=== PATIENT | female | born 1995 | race Caucasian/White ===

== ENCOUNTER → 2020-06-09 | Outpatient (CLI) | payer MEDICAID, SELFPAY ==
[2017-01-22 09:03] VITALS: BMI 43.2
[2020-06-13 16:08] LABS: Chlamydia By Nucleic Acid AMP Positive (Negative)
[2020-06-14 04:49] LABS: Gonococcus By Nucleic Acid AMP Negative (Negative)
== END | disposition home or self-care (01) ==
LOC: LABSPEC 14:50
PROVIDERS: PCP Family Medicine; Visit Provider Obstetrics & Gynecology
DX: Z12.4 Encounter for screening for malignant neoplasm of cervix (principal); Z11.3 Encounter for screening for infections with a predominantly sexual mode of transmission
CPT/HCPCS: 87491; 87591; 88175; G0145

== ENCOUNTER → 2020-06-23 13:30 | Outpatient (CLI) | payer MEDICAID, SELFPAY ==
[2020-06-23 16:13] LABS: Color, Urine Yellow (Yellow); Glucose, Dipstick Normal (Normal); Ketone-Dipstick Negative (Negative); Leukocyte Esterase-Dipstick 500 /ul (Negative); Nitrite-Dipstick Negative (Negative); Occult Blood-Urine Negative /ul (Negative); Protein-Dipstick Negative (Negative); Specific Gravity, Urine 1.005 (1.002-1.030); Urine Bilirubin Dipstick Negative (Negative); Urine Clarity Sl. Cloudy (Clear); Urine Urobilinogen Normal (Normal)
[2020-06-23 16:16] LABS: Absolute Lymphocyte Count 1.77 X10^3/uL (0.83-4.51); Absolute Neutrophil Count 7.3 X10^3/uL (2.0-7.7); Basophil# 0.02 X10^3/uL; Basophil% 0.2 % (0-1); Eosinophil# 0.03 X10^3/uL; Eosinophils% 0.3 % (0-5); Hematocrit 38.7 % (37-47); Hemoglobin 12.7 g/dL (12.0-15.0); Lymphocyte # 1.77 X10^3/ul (4.0); Lymphocyte % 18.4 % (19-41); Mean Corp Hgb Conc 32.8 g/dL (32-36); Mean Corpuscular Hgb 30.2 pg (27.0-32.0); Mean Corpuscular Volume 91.9 fL (81-99); Mean Platelet Vol. 9.3 fl (6.2-12.0); Monocyte# 0.48 X10^3/uL; NRBC Flagged by Analyzer 0 % (0-5); Neutrophil % 75.7 % (47-70); Platelet Count 319 K/mm3 (150-450); RBC Distribution Width CV 12.4 % (11.6-14.6); RBC Distribution Width SD 41.8 fl (35.1-43.9); Red Blood Count 4.21 M/mm3 (4.2-5.4); White Blood Count 9.6 K/mm3 (4.4-11.0)
[2020-06-23 17:06] LABS: Thyroid Stim Hormone (TSH) 3.64 uIU/mL (0.358-3.74)
[2020-06-24 09:20] LABS: HIV - WCH Non-Reactive (Nonreactive); Hepatitis B Surface Antigen Non-Reactive (Nonreactive); Hepatitis C Antibody Non-Reactive (Nonreactive); Rubella IgG 13.8 IU/mL
[2020-06-30 04:30] LABS: Prenatal RPR NONREACTIVE (NONREACTIVE)
== END ==
PROVIDERS: PCP Family Medicine; Visit Provider Obstetrics & Gynecology
DX: Z34.81 Encounter for supervision of other normal pregnancy, first trimester (principal)
CPT/HCPCS: 36415; 81002; 84443; 85025; 86703; 86762; 86803; 87340

== ENCOUNTER → 2020-09-22 13:03 | Outpatient (CLI) | payer MEDICAID, SELFPAY ==
[2017-01-22 09:03] VITALS: BMI 43.2
[2020-09-23 20:08] LABS: Chlamydia By Nucleic Acid AMP Negative (Negative)
[2020-09-24 11:18] LABS: Gonococcus By Nucleic Acid AMP Negative (Negative)
== END ==
PROVIDERS: PCP Family Medicine; Visit Provider Obstetrics & Gynecology
DX: Z34.82 Encounter for supervision of other normal pregnancy, second trimester (principal); Z11.3 Encounter for screening for infections with a predominantly sexual mode of transmission
CPT/HCPCS: 87491; 87591

== ENCOUNTER → 2020-10-20 13:03 | Outpatient (CLI) | payer MEDICAID, SELFPAY ==
[2020-10-20 14:29] LABS: Hematocrit 36.9 % (37-47); Mean Corp Hgb Conc 32.5 g/dL (32-36); Mean Corpuscular Hgb 31.1 pg (27.0-32.0); Mean Corpuscular Volume 95.6 fL (81-99); Mean Platelet Vol. 9.5 fl (6.2-12.0); Platelet Count 265 K/mm3 (150-450); RBC Distribution Width CV 12.7 % (11.6-14.6); RBC Distribution Width SD 43.8 fl (35.1-43.9); Red Blood Count 3.86 M/mm3 (4.2-5.4); White Blood Count 9.6 K/mm3 (4.4-11.0)
[2020-10-20 14:35] LABS: Glucose Challenge Gest 1H 50g 79 mg/dL (70-140)
== END ==
PROVIDERS: PCP Family Medicine; Visit Provider Obstetrics & Gynecology
DX: Z34.82 Encounter for supervision of other normal pregnancy, second trimester (principal)
CPT/HCPCS: 36415; 82950; 85027

== ENCOUNTER → 2021-01-12 13:33 | Outpatient (CLI) | payer MEDICAID, SELFPAY ==
[2017-01-22 09:03] VITALS: BMI 43.2
== END ==
PROVIDERS: PCP Nurse Practitioner Family; Visit Provider Obstetrics & Gynecology
DX: Z36.85 Encounter for antenatal screening for Streptococcus B (principal)
CPT/HCPCS: 87081

== ENCOUNTER → 2021-01-27 14:54 | Outpatient (CLI) | payer MEDICAID, SELFPAY | PROVIDERS: PCP Nurse Practitioner Family; Referring Provider Obstetrics & Gynecology; Visit Provider Obstetrics & Gynecology | DX: Z20.822 Contact with and (suspected) exposure to COVID-19 (principal) | CPT/HCPCS: 87635; C9803; U0002 ==

== ENCOUNTER 2021-01-31 04:50 | Inpatient (IN) | payer MEDICAID, SELFPAY ==
[2021-01-31] VITALS (18 sets, daily range): BP systolic 89–120; BP diastolic 46–86; PULSE 66–111; RESP 16–19; TEMP 35.8–37; O2SAT 95–100; BMI 42.0
[2021-01-31] MEDS: Lactated Ringers 1,000 ML 999 ML IV (05:10)
[2021-01-31 05:22] LABS: Absolute Lymphocyte Count 2.16 X10^3/uL (0.83-4.51); Absolute Neutrophil Count 5.6 X10^3/uL (2.0-7.7); Basophil# 0.02 X10^3/uL; Basophil% 0.2 % (0-1); Eosinophil# 0.03 X10^3/uL; Eosinophils% 0.4 % (0-5); Hematocrit 37.1 % (37-47); Hemoglobin 12.2 g/dL (12.0-15.0); Lymphocyte # 2.16 X10^3/ul (0.83-4.51); Mean Corp Hgb Conc 32.9 g/dL (32-36); Mean Corpuscular Hgb 31.5 pg (27.0-32.0); Mean Corpuscular Volume 95.9 fL (81-99); Mean Platelet Vol. 9.3 fl (6.2-12.0); Monocyte# 0.46 X10^3/uL; Monocyte% 5.5 % (0-10); NRBC Flagged by Analyzer 0 % (0-5); Neutrophil # 5.62 X10^3/uL (2.7-7.7); Neutrophil % 67.5 % (47-70); Platelet Count 254 K/mm3 (150-450); RBC Distribution Width SD 45.9 fl (35.1-43.9); Red Blood Count 3.87 M/mm3 (4.2-5.4); White Blood Count 8.3 K/mm3 (4.4-11.0)
[2021-01-31] MEDS: Acetaminophen 500 MG Tablet 1000 MG PO ×3 (05:39→18:50)
[2021-01-31] MEDS: Lactated Ringers 1,000 ML 150 ML IV (06:48)
[2021-01-31] MEDS: Sodium Citrate/Citric Acid 30 ML UDC PO (06:48)
--- NOTE | 2021-01-31 07:12 | HP.PCM_ITS ---
History and Physical Date of Admission: 01/31/21 Complaint: Repeat section bilateral tubal ligation History of present illness: 25-year-old G2, P1 living to 39 weeks and 4 days with AMRIT: 02/04/2020 1 x 7-week ultrasound arrives for repeat section bilateral tubal ligation. Denies headache, visual changes, chest pain, shortness of breath, nausea vomiting, right upper quadrant pain. Patient states good movement Obstetric history: G1: 38-week primary section twins G2: Current Past medical history: None Medications: vitamin Past surgical history: ET tubes, section, chest wall cyst removal Allergies: No known drug allergies Family history: Denies history DVT or PE Review of systems: Besides above pertinent positives a full review of systems performed found to be negative Physical exam: Vital Signs Temp Pulse Resp BP Pulse Ox 01/31/21 05:11 97.1 F L 111 H 16 120/86 H 97 General: Normal-appearing no acute distress HEENT: Normocytic atraumatic Cardiac/respiratory: Nonlabored breathing, no use of accessory muscles Abdomen: Soft, nontender, gravid Extremities: No normal peripheral edema normal pulses Psych: Normal affect normal demeanor nonpressured speech Mom's Labs & Results 01/31/21 01/31/21 05:10 05:10 WBC 8.3 RBC 3.87 L Hgb 12.2 Hct 37.1 MCV 95.9 MCH 31.5 MCHC 32.9 RDW Std Deviation 45.9 H RDW Coeff of Silverio 13.0 Plt Count 254 MPV 9.3 Immature Gran % (Auto) 0.400 Neut % (Auto) 67.5 Lymph % (Auto) 26.0 Assumption % (Auto) 5.5 Eos % (Auto) 0.4 Baso % (Auto) 0.2 Absolute Neuts (auto) 5.6 Absolute Lymphs (auto) 2.16 Nucleated RBC % 0 Blood Type A POSITIVE Antibody Screen NEGATIVE Labs Blood Type: A RH: POSITIVE RPR/VDRL/Syphilis Nonreactive Rubella status Immune HbSAg Negative Date Done: 06/23/20 Chlamydia Negative Gonorrhea Negative HIV/AIDS Non-Reactive Group B Strep: Negative Assessment plan: 25-year-old G2, P1 living 2 at 39 weeks and 4 days for repeat section bilateral tubal ligation -[facility] -CEFM -GBS negative -2 g Ancef -Routine orders -Anesthesia to see
[2021-01-31] MEDS: Cefazolin 2 GM in 0.9% Normal Saline 100 ML IV (07:24)
--- NOTE | 2021-01-31 08:00 | FALS_PTH ---
PATIENT: MILADIS PHELPS LOC: [facility] U#:[id number] AGE/SX: 25/F ROOM: [facility] RE01/31/[address]: Dr. Kwan Aragon MD : 1995 BED: 1 DIS: 02/01/2021 SPEC #: [id number] RECD: 01/31/21 09:16 STATUS: ARLEY REVon #: [id number] SANGITA: 01/31/21 08:[address]: Kwan Aragon DEPT: SURGICAL PATHOLOGY RECD BY: Maria L Moreland ENTERED: 01/31/21 12:30 SP TYPE: FALL TUBES OTHR DR: Josie Agosto, BELT KNIFE FEEDER-C Tissues: Fallopian tube Procedures: Surgery Specimen Level II HEADER OPERATION: Tubal ligation PRE-OP DIAGNOSIS: Sterilization TISSUE SUBMITTED: Fallopian tubes, suture in right tube MICROSCOPIC DIAGNOSIS Right and left fallopian tubes, bilateral salpingectomies: Two complete segments of fallopian tubes with no pathologic change. AM:zena 02/01/2021 MICROSCOPIC DESCRIPTION Slides are reviewed. GROSS DESCRIPTION Received in fixative is one container labeled with the patient's name and designated bilateral fallopian tubes, stitch on right. The specimen consists of two fallopian tubes with an average length of 8 cm and has an average diameter of 0.7 cm. Both fallopian tubes have normal fimbriated ends. No mass lesions are identified. Patient Advocate sections are submitted in two cassettes as follows: 1 - right fallopian tube, 2 - left fallopian tube. / AM:zena 01/31/2021 TC:4 CPT: 23197 x2
--- NOTE | 2021-01-31 08:28 | OP.PCM_ITS ---
Report of Operation Date of Procedure: 01/31/21 Pre-Operative Diagnosis: Term, history of section, desires permanent sterilization Post-Operative Diagnosis: Term, history of section, desires permanent sterilization Surgery/Procedure Performed:: Repeat section Via Pfannenstiel incision, bilateral salpingectomy Description of Surgical Findings:: Surgeon: Kwan Aragon MD Anesthesia: Spinal EBL: 600 cc Urine output: 400 cc IV fluids: 1300 cc Complications: None Specimen: None Findings: Male in vertex position Apgars 8/9. Normal uterus, tubes, and ovaries. Consent: Patient with history of section desires permanent sterilization in need of repeat section Via Pfannenstiel incision and bilateral tubal ligation. Patient understands the risk of the procedure include but are not limited to visceral or vascular injury, prolonged hospitalization, blood loss and need for transfusion, reoperation. Patient states understanding wished proceed. All questions were answered consent was signed. Procedure: Patient appropriate to the OR where spinal anesthesia found to be adequate. 2 g of Ancef were given for infection prophylaxis. Patient was pared and draped in a dorsal supine position with a leftward tilt. Pfannenstiel incision made skin with a scalpel. Incision was carried down to the fascia with a scalpel. The fascia was excised and extended laterally. Inferior aspect of the fascia was grasped with a clamp and the underlying rectus and pyramidalis muscle were dissected off sharply with Jenkins scissors. In a similar fashion the superior aspect of the fascia was grasped with a clamp and the underlying rectus muscle dissected off sharply. Rectus muscles dissected the midline down to the level of pubic symphysis. Preperitoneal fatty tissue was noted the peritoneum was en tered bluntly. Peritoneum was extended superiorly and inferiorly with good visualization of the bladder. Bladder blade was inserted and vesicouterine peritoneum was identified. Low transverse hysterotomy was made. Hand was placed into the incision. Gentle fundal pressure was applied once the head was brought in incision and bladder blade was removed. Head and shoulders were delivered with ease. Cord was cut and clamped. Baby handed off to nursing. Placenta was delivered via cord traction and fundal massage. Uterus was exteriorized and wiped out with dry laparotomy sponges in order to remove remaining placental membranes. IV oxytocin was initiated in order to facilitate uterine contractions. Uterus was closed in a continuous running fashion. Second layer was performed. Right fallopian tube was identified to the fimbriae. Using a LigaSure device the mesosalpinx was cut and cauterized. Sent to pathology. The left lobe tube was identified to the fimbriae and the mesosalpinx was cut and cauterized fallopian tube was sent to pathology. Hysterotomy incision was reexamined good hemostasis was noted. Uterus was placed back in the abdominal cavity and incision was reinspected and good hemostasis was noted. Muscle layer was closed with horizontal mattress sutures. Fascia was closed in a continuous running fashion. Skin was closed in a subcuticular fashion. All counts correct x2. Patient tolerated procedure well was brought to recovery in stable condition. pig furnace operator: Malia Birmingham
--- NOTE | 2021-01-31 08:33 | DCINST_ITS ---
Discharge Diet: No Restrictions Discharge Activity: Return to Normal Activity, May Drive, May Shower, - - no tub baths for 2 weeks May resume sexual activity in: 4-6 weeks Lifting Restrictions: no lifting over 25lb for 3 weeks Call your doctor if your incision/area has: Continuous Slow Oozing, Foul Smelling Discharge Call your doctor if you observe: Fever of 101 or Higher, Shortness of breath, Chest pain Additional Instructions: If you experience any of the following, contact your healthcare provider. * Bleeding that soaks a pad every hour for 2 hours * Fever 100.4 or higher * Unrelieved incision or abdominal pain * Swelling, redness, discharge or bleeding from your incision or episiotomy site * Your incision begins to separate * Problems urinating (including inability to urinate or burning while urinating). * Visual changes * Severe headache * Flu-like symptoms * Pain or redness in one of both of your breasts * Pain, warmth, tenderness or swelling in your legs, especially the calf area * Frequent nausea and vomiting * Symptoms of depression or anxiety If you experience any of the following, call 911 or go to the nearest Emergency Room. * Chest pain * Problems breathing * Seizure activity * Partial or complete paralysis of a body part, slurred speech, weakness or drooping of the face, or a sudden inability to walk or hold your balance Allergies/Adverse Reactions: Allergies No Known Allergies Allergy (Verified 12/20/16 14:03) Medications to take at Discharge Vit Calc,Iron,Folic [ Vitamins] 1 each PO DAILY 12/17/16 Famotidine [Pepcid] 20 mg PO DAILY 01/31/21 Oxycodone [Oxyir] 5 mg PO Q6H PRN PRN 4 Days #16 tab 01/31/21 The following prescriptions were given: Oxycodone [Oxyir] 5 mg PO Q6H PRN PRN 4 Days #16 tab PRN Reason: Pain Score 6-10 Transmission Status[id number] Follow-Up: Call to make an appointment with your doctor for an incision check in 1-2 weeks. You will also need a 6 week post- follow up appointment. Test results from this visit will be discussed in further detail at your follow- up appointment, if applicable. Please Follow Up With: Kwan Aragon MD When: 2 weeks post op, 6 weeks Primary Care Physician: Josie Agosto CAN CLEANER, CAN CLEANER-C [Primary Care Provider] -
[2021-01-31] MEDS: Oxytocin 30 units/NS 500 ml 30 UNITS/500 ML IV.SOLN 167 UNITS IV (08:50)
[2021-01-31] MEDS: Ketorolac 30 MG/ML Syringe IV ×3 (08:59→21:00)
[2021-01-31 09:19] LABS: Pathology Specimen OB SEE PATHOLOGY REPORT
[2021-01-31] MEDS: 0.9% Saline Lock 10 ML Syringe IV ×2 (11:09→21:01)
[2021-01-31] MEDS: Ondansetron 4 MG/2 ML Vial IV (11:09)
[2021-01-31] MEDS: Lactated Ringers 1,000 ML 100 ML IV (11:56)
[2021-01-31] MEDS: proCHLORPERazine 10 MG/2 ML Vial IV (17:52)
[2021-01-31] MEDS: Enoxaparin 40 MG/0.4 ML Syringe SC (21:01)
[2021-02-01] MEDS: Acetaminophen 500 MG Tablet 1000 MG PO ×3 (00:52→12:25)
[2021-02-01] MEDS: Ibuprofen 600 MG Tablet PO ×3 (02:50→15:26)
[2021-02-01 03:51] VITALS: BP 105/61; PULSE 72; RESP 18; TEMP 36.1
[2021-02-01 05:16] LABS: Hematocrit 30.8 % (37-47); Mean Corp Hgb Conc 32.5 g/dL (32-36); Mean Corpuscular Hgb 31.5 pg (27.0-32.0); Mean Corpuscular Volume 97.2 fL (81-99); Mean Platelet Vol. 9.1 fl (6.2-12.0); Platelet Count 185 K/mm3 (150-450); RBC Distribution Width CV 13.3 % (11.6-14.6); RBC Distribution Width SD 46.6 fl (35.1-43.9); Red Blood Count 3.17 M/mm3 (4.2-5.4); White Blood Count 10.3 K/mm3 (4.4-11.0)
--- NOTE | 2021-02-01 06:34 | NURSING ---
Dr. Aragon notified that patient's IV was removed due to tenderness and swelling and that patient did not get last dose of Toradol.
--- NOTE | 2021-02-01 06:46 | PN.OBGYN_ITS ---
Subjective: No overnight complaints. Pain well controlled. - Physical Exam Vitals/I&O's: Vital Signs Temp Pulse Resp BP Pulse Ox 97 F L 72 18 105/61 98 02/01/21 03:51 02/01/21 03:51 02/01/21 03:51 02/01/21 03:51 01/31/21 23:26 Oxygen Delivery Method Room Air Weight: 253 lb Body Mass Index (BMI) 42.0 Intake and Output for Last 24 Hours 01/30/21 01/31/21 02/01/21 23:59 23:59 23:59 Intake Total 3673.33 / 3673.33 Output Total 2049 / 2049 300 / 300 Balance 1623.33 / 1623.33 -300 / -300 General: Alert, Oriented x3, Cooperative, No apparent distress HEENT: Atraumatic, Normocephalic Oral: Moist Mucosa Neck: Supple Abdomen: Soft, Non Tender Extremities: No clubbing, No cyanosis Neurological: Neuro grossly intact Psych/Mental Status: Normal Affect, Appropriate, Alert and oriented to time, place, person, mood and affect Laboratory Results 02/01/21 05:10: WBC 10.3, RBC 3.17 L, Hgb 10.0 L, Hct 30.8 L, MCV 97.2, MCH 31.5, MCHC 32.5, RDW Std Deviation 46.6 H, RDW Coeff of Silverio 13.3, Plt Count 185, MPV 9.1 Current Medications Acetaminophen (Acetaminophen 500 Mg Tablet) 1,000 mg PO Q6 [facility] Last Admin: 02/01/21 06:34 Dose: 1,000 mg Documented by: Bisacodyl (Bisacodyl 10 Mg Suppository) 10 mg RC UD PRN PRN Reason: If no BM Diphenhydramine HCl (Diphenhydramine 25 Mg Capsule) 25 mg PO Q6H PRN PRN PRN Reason: ITCHING Stop: 02/01/21 08:57 Enoxaparin Sodium (Enoxaparin 40 Mg/0.4 Ml Syringe) 40 mg SC DAILY [facility] Last Admin: 01/31/21 21:01 Dose: 40 mg Documented by: Hydrocortisone (Hydrocortisone 2.5% Crm) 1 applic TOPICAL TID PRN PRN; Protocol PRN Reason: Discomfort Ibuprofen (Ibuprofen 600 Mg Tablet) 600 mg PO Q6H [facility] Last Admin: 02/01/21 02:50 Dose: 600 mg Documented by: Nalbuphine HCl (Nalbuphine 10 Mg/Ml Ampul) 5 mg IV Q3H PRN PRN PRN Reason: ITCHING Stop: 02/01/21 08:57 Naloxone HCl (Naloxone 0.4 Mg/Ml Syringe) 0.02 mg IV Q1M PRN PRN Reason: RR <10 and pt unresponsive Ondansetron HCl (Ondansetron 4 Mg/2 Ml Vial) 4 mg IV Q4H PRN PRN PRN Reason: Nausea Last Admin: 01/31/21 11:09 Dose: 4 mg Documented by: Oxycodone HCl (Oxycodone 5 Mg Tablet) 5 - 10 mg PO Q4H PRN PRN PRN Reason: Pain Score 4-10 Prochlorperazine Edisylate (Prochlorperazine 10 Mg/2 Ml Vial) 10 mg IV Q6H PRN PRN PRN Reason: NAUSEA Last Admin: 01/31/21 17:52 Dose: 10 mg Documented by: Senna/Docusate Sodium (Senna/Docusate Sodium 1 Tablet) 0 tablet PO DAILY [facility] Last Admin: 01/31/21 09:29 Dose: Not Given Documented by: Simethicone (Simethicone 80 Mg Tablet) 80 mg PO [facility] PRN PRN Reason: Indigestion/stomach pain Sodium Chloride (0.9% Saline Lock 10 Ml Syringe) 5 - 15 ml IV UD PRN PRN Reason: SALINE FLUSH Last Admin: 01/31/21 21:01 Dose: 10 ml Documented by: Medical Necessity - Tobacco Use Smoking Status: Never smoker Assessment/Plan Postop day 1 status post repeat section and bilateral salpingectomy. Pain well controlled. Bottlefeeding. Okay to discharge home today
[2021-02-01 08:15] VITALS: BP 106/54; PULSE 86; RESP 16; TEMP 36.1; O2SAT 96
[2021-02-01] MEDS: Senna/Docusate Sodium 1 Tablet PO (09:32)
[2021-02-01] MEDS: Enoxaparin 40 MG/0.4 ML Syringe SC (09:32)
[2021-02-01 14:17] VITALS: BP 102/63; PULSE 105; RESP 16; TEMP 36.4; O2SAT 98
== END 2021-02-01 16:10 | disposition home or self-care (01) | DRG 539 ==
PROVIDERS: Admitting Provider Obstetrics & Gynecology; PCP Nurse Practitioner Family; Referring Provider Obstetrics & Gynecology; Visit Provider Obstetrics & Gynecology
PROC: 10D00Z1 Extraction of Products of Conception, Low, Open Approach (ICD-10-PCS; CPT 59514; principal; 2021-01-31 07:15)
DX: O34.211 Maternal care for low transverse scar from previous cesarean delivery (principal); Z3A.39 39 weeks gestation of pregnancy; Z37.0 Single live birth; Z30.2 Encounter for sterilization
CPT/HCPCS: 85025; 85027; 86850; 86900; 86901; 88302; 99218; J7120; A4216; G0378; J2405

== ENCOUNTER 2021-12-08 15:23 | Outpatient (CLI) | payer MEDICAID, SELFPAY | END 2021-12-08 23:59 | disposition home or self-care (01) | PROVIDERS: PCP Nurse Practitioner Family; Visit Provider Obstetrics & Gynecology | DX: N77.1 Vaginitis, vulvitis and vulvovaginitis in diseases classified elsewhere (principal); Z11.3 Encounter for screening for infections with a predominantly sexual mode of transmission ==

== ENCOUNTER → 2024-12-25 | Outpatient (CLI) | payer MEDICAID, SELFPAY ==
--- NOTE | 2024-12-25 12:43 | CT_ITS ---
PROCEDURE: SINUS/FACIAL BONE REASON FOR EXAM: History of right sinusitis and ear infections. TECHNIQUE: CT of the paranasal sinuses with contrast. CONTRAST: COMPARISON: None. FINDINGS: Frontal: Frontal sinuses and frontoethmoidal recesses appear clear. Ethmoid: Ethmoid air cells appear clear. Sphenoid: Sphenoid sinuses and sphenoethmoidal recesses appear clear. Maxillary: Mild degree of mucosal thickening of the base of the right maxillary sinus. The ostiomeatal complexes are patent bilaterally. Turbinates: Unremarkable. Nasal Septum: Midline. No large nasal septal spur. Mastoids/Middle Ears: Clear at visualized levels. Visualized intracranial structures are unremarkable. No suspicious contrast enhancement. CT/Sinus/Facial Bone IMPRESSION: Mild degree of mucosal thickening at the base of the right maxillary sinus. Th e ostiomeatal complexes are patent bilaterally. One or more dose reduction techniques were used (e.g., Automated exposure contr ol, adjustment of the mA and/or kV according to patient size, use of iterative reconstruction technique). [id number]
== END | disposition home or self-care (01) ==
PROVIDERS: PCP Nurse Practitioner Family; Referring Provider Otolaryngology; Visit Provider Otolaryngology
DX: J32.8 Other chronic sinusitis (principal)
CPT/HCPCS: 70486